=== PATIENT | male | born 1965 | race Caucasian/White ===

== ENCOUNTER 2017-07-22 17:09 | Emergency (ER) | payer OTHER, SELFPAY ==
[2017-07-22 17:10] VITALS: BP 140/103; PULSE 84; RESP 17; TEMP 36.9; BMI 24.7
--- NOTE | 2017-07-22 17:14 | ED.RN ---
EKG DONE IN TRIAGE PER RESPIRATORY THERAPY.
--- NOTE | 2017-07-22 17:25 | RAD_ITS ---
STUDY: X-RAY CHEST REASON FOR EXAM: Male, 52 years old. Chest pain for 2 weeks. TECHNIQUE: PA and lateral views of the chest. COMPARISON: Portable AP upright chest x-ray as well as CTA chest/thorax May 13, 2017. FINDINGS: The lungs are clear and deeply expanded. There is no demonstrated pleural abnormality. Normal size heart. Normal mediastinum and maicol. Normal visualized pulmonary arteries. Normal visualized aortic arch and descending thoracic aorta. There are minor degenerative changes of the visualized thoracic spine. Normal visualized ribs, clavicles, and shoulders. There is no demonstrated abnormality of the visualized soft tissue structures of the upper abdomen. RAD/Chest PA and Lateral IMPRESSION: No acute cardiopulmonary disease. Electronically Signed: Ortega Hunt MD at 18:23 EDT , Service support ,
--- NOTE | 2017-07-22 17:25 | EKG12_ITS ---
Test Reason : CHEST OTHER Blood Pressure : / mmHG Vent. Rate : 089 BPM Atrial Rate : 089 BPM P-R Int : 148 ms QRS Dur : 100 ms QT Int : 370 ms P-R-T Axes : 060 090 071 degrees QTc Int : 450 ms Normal sinus rhythm Normal ECG Confirmed by ALONSO SIDHU, MICHELLE ([id number]), technical writer and editor DENNIS BRYANT ([id number]) on 07/24/2017 2:44:57 PM Referred By: LILIAN/ALISTAIR Confirmed By:MICHELLE GUPTA MD
[2017-07-22] MEDS: Ketorolac 60 MG/2 ML Vial IM (17:56)
--- NOTE | 2017-07-22 18:08 | ED.VISSUMM ---
- ER Visit Summary Date of Service: 07/22/17 Chief Complaint: Back and chest pain History of Present Illness: The patient is a 52 M states that he has had progressive pain in the right lower chest wall that radiates into his back towards his shoulder blade. He states it started off feel like a muscle spasm. It has been present for 2 weeks. Originally only happened at night and now has been affecting him during the daytime. He feels better laying flat. Worse with standing up. He notes pain with movement and deep breathing. He notes pain with palpation along the lower ribs. Denies any trauma. No nausea vomiting. He denies any fevers. No shortness of breath or cough. No rashes. Patient had left-sided chest pain a couple months ago had a negative CTA of the chest other than a noted nodule which she will be following up on. Physical Examination: Afebrile vital signs are stable Gen: Well-nourished well-developed Head: Normocephalic atraumatic Eyes: Perrl EOMI ENT: TMs clear no rhinorrhea moist mucous membranes Neck: Supple no lymphadenopathy no JVD nontender CVS: Regular rate rhythm no murmurs normal S1-S2 Respiratory: No distress clear to auscultation bilaterally patient has tenderness to palpation along the right lower ribs and into the back paraspinally. Patient locates approximately 2 inches right lateral to the spine as the source of most intensity just inferior to the scapula. Abdomen: Soft nontender nondistended normal bowel sounds no masses Back: Nontender Extremity: Nontender no edema Skin: Normal color no rash Neuro: alert orientated ?3 CN II-XII intact normal strength sensation reflexes gait cerebellar Psych: Normal affect normal mood Test Results: X-ray negative for acute. EKG sinus rhythm at a rate of 89 Emergency Department Course and Treatment: Patient received a dose of IM Toradol. His is now at the bedside states that she believes this is his gallbladder. Bedside gallbladder ultrasound demonstrates no gallstones, wall thickening, pericholecystic fluid. He has a negative Castaneda sign. He has no epigastric pain. states that she does not believe it is musculoskeletal in nature. I believe it is. The pain is reproducible. I think most likely this is somatic dysfunction of his lower right ribs. I asked the patient's what more I can do for her to make her feel comfortable and she suggest liver enzymes. However I do not feel the liver enzymes are going to be of any benefit in diagnosing this condition. Patient will be discharged home with anti-inflammatories and Valium. He is to follow-up with his family doctor. I also suggested chiropractor. Impression: 1. Right lower ribs somatic dysfunction. This note was generated with [employer] dictation software. It may contain incorrect words, spelling, and punctuation that were not noted in review of the chart prior to signing ED Disposition - Plan for ED Patient: Disposition: Home or Assisted Living Chief Complaint: Chest Other Prescriptions: Diazepam [Valium] 5 mg PO Q8 PRN #20 tab PRN Reason: Muscle Spasm Ibuprofen [Motrin] 800 mg PO TID #20 tab Referrals: Dank Holden III, MD [Primary Care Provider] - As soon as possible
== END 2017-07-22 18:26 | disposition home or self-care (01) ==
LOC: ED 17:47
PROVIDERS: Emergency Provider Emergency Medicine; Family Provider Family Medicine; PCP Family Medicine
DX: F45.41 Pain disorder exclusively related to psychological factors (principal); R07.89 Other chest pain; R07.81 Pleurodynia; Z72.0 Tobacco use
CPT/HCPCS: 71046; 93005; 96372; 99283

== ENCOUNTER → 2020-03-06 10:53 | Outpatient (CLI) | payer OTHER, SELFPAY | PROVIDERS: PCP Family Medicine; Referring Provider Nurse Practitioner Family; Visit Provider Nurse Practitioner Family | DX: Z20.828 Contact with and (suspected) exposure to other viral communicable diseases (principal) | CPT/HCPCS: 87635; C9803; U0003 ==

== ENCOUNTER 2021-07-22 13:11 | Emergency (ER) | payer OTHER, SELFPAY ==
[2021-07-22 13:12] VITALS: BP 130/90; PULSE 78; RESP 16; TEMP 36.3; O2SAT 98; BMI 24.8
--- NOTE | 2021-07-22 13:18 | ED.RN ---
SYMPTOMS DISCUSSED WITH ED MD, NO STROKE ALERT CALLED
--- NOTE | 2021-07-22 13:46 | EKG12_ITS ---
Test Reason : NEURO S/X Blood Pressure : / mmHG Vent. Rate : 067 BPM Atrial Rate : 067 BPM P-R Int : 142 ms QRS Dur : 110 ms QT Int : 384 ms P-R-T Axes : 023 073 058 degrees QTc Int : 405 ms Normal sinus rhythm Normal ECG Confirmed by ALONSO SIDHU, MICHELLE ([id number]), fan mail editor TRAVIS HERNÁNDEZ ([id number]) on 07/25/2021 9:26:03 AM Referred By: YOVANA Confirmed By:MICHELLE GUPTA MD
[2021-07-22 13:47] VITALS: BMI 24.8
--- NOTE | 2021-07-22 13:47 | EX.ED.VIS.HA ---
HPI History of Present Illness Chief Complaint: Neuro S/Sx Informant: patient and spouse/S.O. Onset/Context/Timing Onset: Month(s) Context: Gradual Timing: Intermittent Quality -Headache: Positive for Similar Prior Headaches Current Severity: Gone Maximum Severity: Mild Associated Symptoms/Injury Associated Symptoms: Positive for Nausea Narrative Narrative: 56-year-old male no significant past medical history other than back surgery. States the last 1 to 2 years has been getting headaches where he gets a headache and he gets what he calls a kaleidoscope where he sees different colors in his vision changes. Is been going on for 1 to 2 years. He saw an abrasive wheel molder about this a working up for glaucoma and other causes all of which were negative. He had no brain imaging. Today's headache is episodes of becoming more frequently and today had nausea and felt off balance with it. He is never had a stroke or mini stroke. He has no cardiac history. He is not ever been diagnosed as diabetic. The concern in the past was possibly ocular migraines. Prior similar symptoms: Yes Recent Illness/Hospitalization: No PFSH PFSH Home Medications sumatriptan succinate [Imitrex] 25 mg PO Q2H PRN #14 tab 07/22/21 [Rx Last Taken Unknown] Allergy/AdvReac Type Severity Reaction Status Date / Time Penicillins Allergy Rash Verified 07/22/21 13:15 Social History Smoking Status: Current every day smoker tobacco type: cigarettes ROS ROS ED ROS Narrative Headache. Nausea. Review of Systems ROS Unobtainable: Denies due to encephalopathy Constitutional Constitutional ED: Denies fever(s) Eyes Eyes: Reports blurry vision ENT ENT ED: Denies ear pain Cardiovascular Cardiovascular: Denies chest pain Respiratory/Chest Respiratory/Chest: Denies dyspnea Gastrointestinal Gastrointestinal: Reports nausea; Denies abdominal pain Genitourinary Genitourinary ED: Denies dysuria Musculoskeletal Musculoskeletal: Denies myalgias Integumentary Denies rash Neurologic Neurologic: Reports headache(s) Psychiatric Psychiatric: Denies depression Endocrine Endocrinology: Denies polyuria Hematologic/Lymphatic Hematologic/Lymphatic: Denies easy bruising Allergic/Immunologic Allergic/Immunologic ED: Denies urticaria EXAM Physical Exam Narrative Exam Narrative: 36-year-old male. Vital signs stable afebrile. H EENT exam normal. No facial droop. Normal speech. No trauma. Neck nontender. No lymphadenopathy. No meningismus. Lungs clear. Heart regular rate and rhythm no murmur. Abdomen soft nontender. Moving all 4 extremities. Normal strength. Normal range of motion. Neurologically awake. Alert. Oriented x3. NIH 0. Fingertip to nose [id number] all within normal limits. Const Vital Signs: 07/22/21 13:12 Temperature 97.4 F L Temperature Source Temporal Pulse Rate 78 Respiratory Rate 16 Blood Pressure 130/90 H Blood Pressure Mean 103 Pulse Ox 98 Oxygen Delivery Method Room Air Positive well nourished and well developed; Negative for obese, cachectic, contractures or unkempt General Appearance ED: well developed and NAD; Negative for unkempt, cachectic, contractures, cyanotic or diaphoretic Nutritional Appearance: Negative for cachectic or obese HEENT Reports normocephalic and moist mucous membranes; Denies dry mucous membranes atraumatic; Negative for trauma, tenderness or temporal artery tenderness Mouth ED: No dry mucous membranes Mouth: No dry mucous membranes Eyes PERRL and EOMs intact bilaterally General Eye ED: Negative for pale conjunctiva or scleral icterus Neck no lymphadenopathy, supple, no meningeal signs and no JVD General: Negative for tenderness Resp normal respiratory effort and clear to auscultation bilaterally Auscultation: Negative for rales, rhonchi, wheezes or diminished lung sounds Cardio regular rate, regular rhythm, S1 normal heart sound, S2 normal heart sound and no murmurs GI non-tender and non-distended Auscultation: normoactive bowel sounds Palpation: soft; Negative for firm, tender, guarding or rigid Back/Spine no CVA tenderness General Back: Negative for CVA tenderness or tenderness Cervical Spine: Negative for cervical spine tenderness Thoracic Spine / Upper Back: Negative for thoracic spinal tenderness Extremity normal to inspection, full ROM and normal capillary refill General Extremety ED: Negative for edema or tenderness General Extremity: Negative for edema Neuro oriented x3 and CN's II-XII intact bilaterally Sensorium / Orientation: awake, alert, oriented to person, oriented to place and oriented to time; Negative for orientation impaired, lethargic or stuporous Coordination / Balance: [id number] test normal and [id number] test normal Speech: speech normal Motor Exam: strength 5/5 throughout; Negative for general weakness Psych mental status grossly normal Appearance: Negative for unkempt Mood & Affect: Negative for depressed or tearful Skin Lesions: no lesions Rashes: no rashes MDM MDM MDM Narrative Medical decision making narrative: 56-year-old male with symptoms consistent with headache and transient visual changes. This may be consistent with ocular migraines. He will undergo CTA of his head neck for imaging. Screening labs. His exam is normal. Repeat exam patient is doing well at 3:20 PM. Exam unchanged. Will be discharged to home. Placed on sumatriptan for migraine symptoms and follow-up with his primary care provider. Lab Data Attestation: I reviewed the patient's lab results. Lab results narrative: CBC normal white count 8. H&H 16 and 48. Electrolytes unremarkable gap of 4 normal BUN and creatinine. Glucose 100. Labs: Laboratory Results - last 24 hr 07/22/21 07/22/21 13:56 13:56 WBC 8.1 RBC 5.23 Hgb 16.2 Hct 48.1 MCV 92.0 MCH 31.0 MCHC 33.7 RDW Std Deviation 50.1 H RDW Coeff of Carlos 14.7 H Plt Count 234 MPV 9.3 Sodium 138 Potassium 4.1 Chloride 108 H Carbon Dioxide 26.0 Anion Gap 4 L BUN 16 Creatinine 0.93 Estim Creat Clear Calc 96.71 Est GFR (MDRD) Af Amer 108 Est GFR (MDRD) Non-Af 90 BUN/Creatinine Ratio 17.1 Glucose 100 Calcium 9.3 Radiography Diagnostic Testing: Clinical Impression(s) from Imaging Studies Head/Neck CTA 07/22/21 14:06 IMPRESSION: Normal CTA Head and neck with contrast. Electronically Signed: Hubert Garcia MD at 14:33 EDT , Discharge Plan Triage Chief Complaint: Neuro S/Sx ED Provider: Alexis Santos Dx/Rx/DC Orders Clinical Impression: Acute headache, Ocular migraine Instructions: ED Headache Unspecified Prescriptions: New sumatriptan succinate [Imitrex] 25 mg tablet 25 mg PO Q2H PRN (Reason: migraine headache) Qty: 14 RF: 0 Primary Care Provider: Ángel Munoz Referrals: Ángel Munoz MD [Primary Care Provider] - 3-5 Days Activity Restrictions/Additional Instructions: Your labs and CAT scans today were unremarkable. This very well may be ocular migraines. I wrote you for the medication Imitrex which you can use to try to treat your symptoms. If it works well your doctor can write you for refills or if not they can try other medications. This medication typically works best at the onset of the headache. Disposition Disposition: Home, Self Care
[2021-07-22 14:01] LABS: Hematocrit 48.1 % (40-54); Hemoglobin 16.2 g/dL (13.0-16.5); Mean Corp Hgb Conc 33.7 g/dL (32-36); Mean Platelet Vol. 9.3 fl (6.2-12.0); Platelet Count 234 K/mm3 (150-450); RBC Distribution Width CV 14.7 % (11.6-14.6); RBC Distribution Width SD 50.1 fl (35.1-43.9); Red Blood Count 5.23 M/mm3 (4.6-6.2); White Blood Count 8.1 K/mm3 (4.4-11.0)
--- NOTE | 2021-07-22 14:06 | CT_ITS ---
STUDY: CTA HEAD AND NECK WITH CONTRAST REASON FOR EXAM: Male, 56 years old. Headache RADIATION DOSAGE (If Supplied By Facility): CTDIvol = ( 29.38 ) mGy, DLP = ( 1577.00 ) mGycm TECHNIQUE: CT angiography was performed with a multi-detector CT scanner. Data acquisition was obtained from the skull base through the vertex following intravenous administration of IV 100mL [id number]-[id number]. MIP images were reconstructed from the axial data set. Post-processing of the angiographic images was performed, with multiplanar reformation and 3D reconstruction. Individualized dose optimization techniques were used for this CT. COMPARISON: No relevant priors. FINDINGS: Normal bilateral petrous carotid arteries. Normal right cavernous carotid artery with a normal supraclinoid bifurcation. Normal left cavernous carotid artery with a normal supraclinoid bifurcation. Normal right A1 segments of the anterior cerebral artery. Normal left A1 segments of the anterior cerebral artery. Normal intact anterior communicating artery (ACOM). Normal bilateral A2 segments of the anterior cerebral arteries. Normal right M1 and M2 segments of the middle cerebral arteries, with a normal M1 bifurcation. Normal left M1 and M2 segments of the middle cerebral arteries, with a normal M1 bifurcation. Normal right posterior communicating artery (PCOM). Normal left posterior communicating artery (PCOM). Normal bilateral vertebral arteries. Normal basilar artery with a normal basilar bifurcation. The visualized bilateral superior cerebellar (SCA) arteries are normal. Normal bilateral P1, P2 and visualized P3 segments of the posterior cerebral arteries. There is no demonstrated aneurysm of the [place]. There is no demonstrated abnormality of the visualized brain. AORTIC ARCH: There is scattered atherosclerotic calcific plaque formation of the aortic arch and great vessels arising from the aortic arch, without a hemodynamically significant stenosis. There is a normal origin of the brachiocephalic, left common carotid, and left subclavian arteries. RIGHT CAROTID ARTERIES: Normal right common carotid artery (CCA). Normal right common carotid bulb. Normal origin of the right internal carotid (ICA) artery without a hemodynamically significant stenosis. Normal visualized cervical portion of the right internal carotid artery. Normal origin of the right external carotid artery (ECA). LEFT CAROTID ARTERIES: Normal left common carotid artery (CCA). Normal left common carotid bulb. Normal origin of the left internal carotid (ICA) artery without a hemodynamically significant stenosis. Normal visualized cervical portion of the left internal carotid artery. Normal origin of the left external carotid artery (ECA). VERTEBRAL ARTERIES: Normal bilateral vertebral arteries. CT/CTA Head AND Neck W/ Contrast IMPRESSION: Normal CTA Head and neck with contrast. Electronically Signed: Hubert Garcia MD at 14:33 EDT ,
[2021-07-22 14:19] LABS: Anion Gap 4 (5-15); BUN 16 mg/dL (7-18); BUN/Creat Ratio 17.1 RATIO (10-20); Calcium,Total 9.3 mg/dL (8.5-10.1); Chloride 108 mmol/L (98-107); Creatinine, Serum 0.93 mg/dL (0.70-1.30); EST Glomerular Filtration Rate 90 mL/min (>60); Est Glom Filt Rate - Afr Amer 108 mL/min (>60); Estimated Creatinine Clearance 96.71 ml/min; Glucose 100 mg/dL (74-106); Potassium 4.1 mmol/L (3.5-5.1); Sodium Level 138 mmol/L (136-145)
== END 2021-07-22 15:42 | disposition home or self-care (01) ==
PROVIDERS: Emergency Provider Emergency Medicine; PCP Family Medicine; Visit Provider Emergency Medicine
DX: G43.909 Migraine, unspecified, not intractable, without status migrainosus (principal); F17.210 Nicotine dependence, cigarettes, uncomplicated
CPT/HCPCS: 70496; 70498; 80048; 85027; 93005; 99283; Q9967; A4216